=== PATIENT | male | born 1945 | race Caucasian/White ===

== ENCOUNTER 2016-06-10 23:01 | Emergency (ER) | payer OTHER ==
[~2016-06-10] VITALS: Ht 185.4 cm; Wt 102.8 kg
[2016-06-11] MEDS ORDERED: NORCO 5/3251 TABLET PO (01:26)
[2016-06-11 02:07] VITALS: BP 129/64
== END 2016-06-11 02:19 | disposition home or self-care (01) ==
LOC: EME → EDBD 23:01 → EME 23:01
PROC: 0SSBXZZ Reposition Left Hip Joint, External Approach (ICD-10-PCS; principal; 2016-06-11)
DX: M24.352 Pathological dislocation of left hip, not elsewhere classified (principal); Z96.643 Presence of artificial hip joint, bilateral; Z87.891 Personal history of nicotine dependence
CPT/HCPCS: 73501; 73502; 99281; 99284; J3010; J7040

== ENCOUNTER 2016-11-11 19:03 | Emergency (ER) | payer OTHER ==
[~2016-11-11] VITALS: Ht 182.9 cm; Wt 103.0 kg
[~2016-11-11 19:03] MED LIST: NORCO 5/3251 TABLET PO
[2016-11-11 19:39] LABS: HEMATOCRIT 38.7 % (38.0-50.0); MCH 33.7 PG (29.0-34.0); MCHC 33.3 G/DL (30.0-36.0); MEAN PLAT.VOLUME 9.5 uM^3 (9.0-12.4); PLATELET COUNT 203 K/uL (156-360); RBC DIS.WIDTH-SD 51.5 % (39-53); RED BLOOD COUNT 3.83 M/uL (4.00-5.50); WHITE BLOOD COUNT 6.4 K/uL (4.1-10.2)
[2016-11-11 19:51] LABS: CHLORIDE 109 mEq/L (99-109); POTASSIUM 4.2 mEq/L (3.7-5.4); SODIUM 142 mEq/L (136-147)
[2016-11-11 19:52] LABS: GLUCOSE 94 mg/dL (70-99)
[2016-11-11 19:54] LABS: ANION GAP 8 MEQ/L (2-14); INTER. NORMALIZED RATIO 1.1; PROTHROMBIN TIME 10.8 (9.2-11.2)
[2016-11-11 19:56] LABS: GFR ESTIMATE (CALCULATED) > 59 mL/min/
[2016-11-11 19:57] LABS: UREA NITROGEN (BUN) 11 mg/dL (9-23)
[2016-11-11 21:35] VITALS: BP 116/68
== END 2016-11-11 21:36 | disposition home or self-care (01) ==
LOC: EME 19:03
PROVIDERS: Emergency Medicine
PROC: 0SWBXJZ Revision of Synthetic Substitute in Left Hip Joint, External Approach (ICD-10-PCS; principal; 2016-11-11)
DX: T84.021A Dislocation of internal left hip prosthesis, initial encounter (principal); X50.0XXA Overexertion from strenuous movement or load, initial encounter; Z87.891 Personal history of nicotine dependence
CPT/HCPCS: 73501; 73502; 80048; 85027; 85610; 85730; 99281; 99285; J3010

== ENCOUNTER → 2017-04-28 | Outpatient (CLI) | payer OTHER | END | disposition home or self-care (01) | LOC: CDC 15:22 | DX: Z01.810 Encounter for preprocedural cardiovascular examination (principal); I44.0 Atrioventricular block, first degree; R94.31 Abnormal electrocardiogram [ECG] [EKG] | CPT/HCPCS: 93000 ==

== ENCOUNTER 2017-07-05 04:50 | Emergency (ER) | payer OTHER ==
[~2017-07-05] VITALS: Ht 185.4 cm; Wt 104.9 kg
[2017-07-05 05:23] LABS: HEMATOCRIT 40.3 % (38.0-50.0); HEMOGLOBIN 14.1 G/DL (12.5-16.6); MCH 34.6 PG (29.0-34.0); MCV 98.8 FL (86-99); PLATELET COUNT 215 K/uL (156-360); RBC DIS.WIDTH-CV 12.9 % (11.8-14.6); RBC DIS.WIDTH-SD 46.5 % (39-53); RED BLOOD COUNT 4.08 M/uL (4.00-5.50); WHITE BLOOD COUNT 7.5 K/uL (4.1-10.2)
[2017-07-05 05:42] LABS: CHLORIDE 106 MEQ/L (99-109); POTASSIUM 4.3 MEQ/L (3.7-5.4); SODIUM 138 MEQ/L (136-147)
[2017-07-05 05:48] LABS: CREATININE 1.1 MG/DL (0.6-1.3); GFR ESTIMATE (CALCULATED) > 59 mL/min/ (58.99-99999); GLUCOSE 112 mg/dL (70-99); UREA NITROGEN (BUN) 17 mg/dL (9-23)
[2017-07-05 06:19] LABS: APPEARANCE TURBID ((CLEAR)); BILIRUBIN SMALL; COLOR RED ((YELLOW)); GLUCOSE (STRIP) NEGATIVE; KETONES NEGATIVE
[2017-07-05 06:20] LABS: BLOOD LARGE; LEUKOCYTES TRACE; NITRITE NEGATIVE; PROTEIN (STRIP) TRACE; RED BLOOD CELLS TNTC /HPF (0-5); UCUL ADDED? YES; UROBILINOGEN 0.2 MG/DL (0.2-1.0)
[2017-07-05] MEDS ORDERED: FLOMAX0.4 MG PO (09:38)
[2017-07-05] MEDS ORDERED: ZOFRAN ODT4 MG PO (09:38)
[2017-07-05] MEDS ORDERED: PERCOCET 5/31 TABLET PO (09:38)
[2017-07-05 09:58] VITALS: BP 109/65
== END 2017-07-05 09:59 | disposition home or self-care (01) ==
LOC: EME 04:50
DX: N13.2 Hydronephrosis with renal and ureteral calculous obstruction (principal); K57.30 Diverticulosis of large intestine without perforation or abscess without bleeding; Z87.442 Personal history of urinary calculi; Z96.643 Presence of artificial hip joint, bilateral; Z87.891 Personal history of nicotine dependence
CPT/HCPCS: 74018; 74176; 80048; 81003; 85027; 87086; 99281; 99285; J1885; J2270; J2405; J7030

== ENCOUNTER 2017-10-15 20:29 | Emergency (ER) | payer OTHER ==
[~2017-10-15] VITALS: Ht 185.4 cm; Wt 104.3 kg
[~2017-10-15 20:29] MED LIST changes: +FLOMAX0.4 MG PO; +PERCOCET 5/31 TABLET PO; +ZOFRAN ODT4 MG PO
[2017-10-16 00:47] VITALS: BP 126/72
== END 2017-10-16 00:47 | disposition home or self-care (01) ==
LOC: EME 20:29
PROC: 0SSBXZZ Reposition Left Hip Joint, External Approach (ICD-10-PCS; principal; 2017-10-15)
DX: T84.021A Dislocation of internal left hip prosthesis, initial encounter (principal); Z96.643 Presence of artificial hip joint, bilateral; X58.XXXA Exposure to other specified factors, initial encounter; F32.9 Major depressive disorder, single episode, unspecified; F90.9 Attention-deficit hyperactivity disorder, unspecified type; Z88.5 Allergy status to narcotic agent; Z87.891 Personal history of nicotine dependence
CPT/HCPCS: 73501; 73502; 99281; 99285; J3010

== ENCOUNTER → 2017-11-02 | Outpatient (CLI) | payer OTHER ==
[~2017-11-02] MED LIST changes: +ARICEPT10 MG PO; +CLARITIN,ALAVAR10 MG PO; +CYANOCOBALAM1000 MCG PO; +GLUCOSAMINE CH1 EAC1 PO; +METHOTREXATE2.5 MG PO; +MULTIPLE VITAM1 EACH PO; +MYRBETRIQ25 MG PO; +OMEGA-3 FLAXS1000 MG PO; +POTASSIUM-9999 MG PO; +PRESERVISION T1 EACH PO; +PRILOSEC20 MG PO; +PROSCAR5 MG PO; +TYLENOL ARTHRI650 MG PO; +VITAMIN E400 UNIT PO; +WELLBUTRIN XL300 MG PO; +ZOCOR40 MG PO
== END | disposition home or self-care (01) ==
LOC: CDC 09:15
DX: Z01.810 Encounter for preprocedural cardiovascular examination (principal); T84.021D Dislocation of internal left hip prosthesis, subsequent encounter; R94.31 Abnormal electrocardiogram [ECG] [EKG]
CPT/HCPCS: 93000

== ENCOUNTER 2017-11-07 22:03 | Inpatient (IN) | payer OTHER ==
[~2017-11-07] VITALS: Ht 182.9 cm; Wt 101.7 kg
[~2017-11-07 22:03] MED LIST changes: +IRON325 M1 PO
[2017-11-08] MEDS ORDERED: OMEPRAZOLE20 MG PO (15:27)
[2017-11-08] MEDS ORDERED: DONEPEZIL HCL10 MG PO (15:27)
[2017-11-08] MEDS ORDERED: BUPROPION XL300 MG PO (15:28)
[2017-11-08] MEDS ORDERED: TAMSULOSIN HCL0.4 MG PO (15:31)
[2017-11-08] MEDS ORDERED: FINASTERIDE5 MG PO (15:32)
== END 2017-11-08 07:34 | disposition other institution (70) | DRG 561 ==
LOC: 2SOUTH → ENRESERV 22:03 → 2SOUTH 11-08 07:13
DX: T84.091A Other mechanical complication of internal left hip prosthesis, initial encounter (principal); Z53.09 Procedure and treatment not carried out because of other contraindication
CPT/HCPCS: J7050

== ENCOUNTER 2017-11-08 07:34 | Inpatient (IN) | payer OTHER ==
[~2017-11-08] VITALS: Ht 182.9 cm; Wt 97.2 kg
[2017-11-08 08:11] LABS: HEMATOCRIT 41.9 % (38.0-50.0); HEMOGLOBIN 14.3 G/DL (12.5-16.6); MCH 34.1 PG (29.0-34.0); MCHC 34.1 G/DL (30.0-36.0); PLATELET COUNT 236 K/uL (156-360); RBC DIS.WIDTH-CV 13.9 % (11.8-14.6); RBC DIS.WIDTH-SD 51.1 % (39-53); RED BLOOD COUNT 4.19 M/uL (4.00-5.50); WHITE BLOOD COUNT 11.8 K/uL (4.1-10.2)
[2017-11-08 08:21] LABS: ALBUMIN 4.3 g/dL (3.2-4.8); CHLORIDE 103 mEq/L (99-109); POTASSIUM 4.2 mEq/L (3.7-5.4); SODIUM 140 mEq/L (136-147)
[2017-11-08 08:23] LABS: GLUCOSE 164 mg/dL (70-99); TOTAL PROTEIN 7.4 g/dL (6.4-8.3)
[2017-11-08 08:25] LABS: TOTAL BILIRUBIN 0.7 mg/dL (0.0-1.0)
[2017-11-08 08:27] LABS: ALKALINE PHOSPHATASE 52 IU/L (3-129); CREATININE 1.1 mg/dL (0.6-1.3); GFR ESTIMATE (CALCULATED) > 59 mL/min/ (58.99-99999)
[2017-11-08 08:28] LABS: UREA NITROGEN (BUN) 23 mg/dL (9-23)
[2017-11-08 08:29] LABS: AST (GOT) 32 IU/L (2-34)
[2017-11-08 08:30] LABS: ALT (GPT) 36 IU/L (3-49); LIPASE 10 U/L (1.0-51.0)
[2017-11-08 08:33] LABS: TROP-I INTERPRETATION NEGATIVE; TROPONIN-I < 0.01 ng/mL (0.0-0.30)
[2017-11-08 09:22] LABS: APPEARANCE CLEAR ((CLEAR)); BILIRUBIN NEGATIVE; BLOOD NEGATIVE; COLOR YELLOW ((YELLOW)); GLUCOSE (STRIP) NEGATIVE; KETONES 5; LEUKOCYTES NEGATIVE; NITRITE NEGATIVE; PROTEIN (STRIP) 30; SPECIFIC GRAVITY 1.026 (1.000-1.030); UCUL ADDED? NO; UROBILINOGEN 0.2 MG/DL (0.2-1.0)
[2017-11-08] MEDS ORDERED: OMEPRAZOLE20 MG PO (15:27)
[2017-11-08] MEDS ORDERED: DONEPEZIL HCL10 MG PO (15:27)
[2017-11-08] MEDS ORDERED: BUPROPION XL300 MG PO (15:28)
[2017-11-08] MEDS ORDERED: TAMSULOSIN HCL0.4 MG PO (15:31)
[2017-11-08] MEDS ORDERED: FINASTERIDE5 MG PO (15:32)
[2017-11-08 22:13] VITALS: BP 142/66
[2017-11-09] VITALS: BP 132/78
[2017-11-09 04:20] VITALS: BP 147/69
[2017-11-09 06:03] LABS: BASOPHIL COUNT 0.1 K/uL (0-0.1); EOSINOPHIL (%) 1.8 % (0-5); EOSINOPHIL COUNT 0.2 K/uL (0-0.3); HEMATOCRIT 39.8 % (38.0-50.0); HEMOGLOBIN 13.3 G/DL (12.5-16.6); IMMATURE GRANULOCYTE (%) 0.2 % (0.0-0.7); LYMPHOCYTE (%) 28.2 % (15-42); LYMPHOCYTE COUNT 2.7 K/uL (1.0-2.8); MCH 33.2 PG (29.0-34.0); MCHC 33.4 G/DL (30.0-36.0); MCV 99.3 FL (86-99); MONOCYTE (%) 13.5 % (3-12); MONOCYTE COUNT 1.3 K/uL (0-0.8); NEUTROPHIL (%) 55.3 % (45-76); NEUTROPHIL COUNT 5.2 K/uL (1.8-6.4); PLATELET COUNT 236 K/uL (156-360); RBC DIS.WIDTH-CV 14.3 % (11.8-14.6); RBC DIS.WIDTH-SD 52.6 % (39-53); RED BLOOD COUNT 4.01 M/uL (4.00-5.50); WHITE BLOOD COUNT 9.4 K/uL (4.1-10.2)
[2017-11-09 06:29] LABS: ALBUMIN 3.9 G/DL (3.2-4.8); ALKALINE PHOSPHATASE 40 IU/L (3-129); ALT (GPT) 25 IU/L (3-49); AST (GOT) 23 IU/L (2-34); CHLORIDE 104 MEQ/L (99-109); CREATININE 0.8 MG/DL (0.6-1.3); GFR ESTIMATE (CALCULATED) > 59 mL/min/ (58.99-99999); HDL CHOLESTEROL 44 MG/DL (Desirable>=40); LDL CHOLESTEROL 82 mg/dL (Desirable<100); NON-HDL CHOLESTEROL 109 mg/dL (Desirable<160); SODIUM 140 MEQ/L (136-147); TOTAL BILIRUBIN 0.6 MG/DL (0.0-1.0); TOTAL CHOLESTEROL 153 mg/dL (Desirable<200); TOTAL PROTEIN 6.3 G/DL (6.4-8.3); TRIGLYCERIDES 137 MG/DL (Normal: <150); UREA NITROGEN (BUN) 15 mg/dL (9-23)
[2017-11-09 06:33] LABS: GLUCOSE 92 mg/dL (70-99)
[2017-11-09 08:00] VITALS: BP 140/69
[2017-11-09 11:43] VITALS: BP 116/67
[2017-11-09 12:33] LABS: HEMOGLOBIN A1c (GLYCOHEMOGLOB) 5.7 % (Below 5.7)
[2017-11-09 16:00] VITALS: BP 132/64
[2017-11-09 20:00] VITALS: BP 127/67
[2017-11-10] VITALS: BP 126/62
[2017-11-10 04:00] VITALS: BP 111/58
[2017-11-10 08:56] VITALS: BP 126/68
[2017-11-10 12:44] VITALS: BP 126/68
[2017-11-10] MEDS ORDERED: LOSARTAN POTASS25 MG PO (18:39)
[2017-11-10] MEDS ORDERED: ASPIR-LOW81 MG PO (18:39)
[2017-11-10 19:58] VITALS: BP 139/65
[2017-11-11] VITALS: BP 127/62
[2017-11-11 04:05] VITALS: BP 129/63
[2017-11-11 07:44] VITALS: BP 123/74
[2017-11-11 11:39] VITALS: BP 119/63
== END 2017-11-11 14:17 | DRG 65 ==
LOC: EME 07:34 → 5SOUTH 11:50 → EDOF 11:50 → CANRESERV 12:11 → ENRESERV 12:11 → CANRESERV 12:18 → ENRESERV 12:23 → 5SOUTH 21:01
PROVIDERS: Family Medicine; Nurse Practitioner Family
DX: I63.9 Cerebral infarction, unspecified (principal); R27.0 Ataxia, unspecified; R29.702 NIHSS score 2; R53.1 Weakness; E87.2 Acidosis; E78.5 Hyperlipidemia, unspecified; L40.9 Psoriasis, unspecified; I10 Essential (primary) hypertension; N40.0 Benign prostatic hyperplasia without lower urinary tract symptoms; R73.9 Hyperglycemia, unspecified; M25.552 Pain in left hip; K21.9 Gastro-esophageal reflux disease without esophagitis; F32.9 Major depressive disorder, single episode, unspecified; Z87.891 Personal history of nicotine dependence; Z96.643 Presence of artificial hip joint, bilateral; Z82.49 Family history of ischemic heart disease and other diseases of the circulatory system; Z82.0 Family history of epilepsy and other diseases of the nervous system
CPT/HCPCS: 70450; 70551; 71046; 74177; 80053; 80061; 81003; 82948; 83036; 83605; 83690; 84484; 85025; 85027; 93005; 93880; 97530 GO; 97530 GP; 99281; 99285; J1644; J7030

== ENCOUNTER 2017-11-10 15:22 | Inpatient (IN) | payer OTHER ==
[~2017-11-10] VITALS: Ht 182.9 cm; Wt 100.4 kg
[~2017-11-10 15:22] MED LIST changes: +BUPROPION XL300 MG PO; +DONEPEZIL HCL10 MG PO; +FINASTERIDE5 MG PO; +OMEPRAZOLE20 MG PO; +TAMSULOSIN HCL0.4 MG PO
[2017-11-10] MEDS ORDERED: ASPIR-LOW81 MG PO (18:39)
[2017-11-10] MEDS ORDERED: LOSARTAN POTASS25 MG PO (18:39)
[2017-11-11 14:51] VITALS: BP 118/57
[2017-11-12 00:49] VITALS: BP 103/57
[2017-11-12 04:40] VITALS: BP 104/56
[2017-11-12 05:52] LABS: HEMATOCRIT 38.5 % (38.0-50.0); HEMOGLOBIN 12.9 G/DL (12.5-16.6); MCHC 33.5 G/DL (30.0-36.0); MCV 98.5 FL (86-99); PLATELET COUNT 215 K/uL (156-360); RBC DIS.WIDTH-SD 50.4 % (39-53); RED BLOOD COUNT 3.91 M/uL (4.00-5.50); WHITE BLOOD COUNT 7.1 K/uL (4.1-10.2)
[2017-11-12 08:59] LABS: ALBUMIN 3.7 G/DL (3.2-4.8); ALKALINE PHOSPHATASE 41 IU/L (3-129); ALT (GPT) 27 IU/L (3-49); AST (GOT) 22 IU/L (2-34); CHLORIDE 103 MEQ/L (99-109); CREATININE 0.9 MG/DL (0.6-1.3); GFR ESTIMATE (CALCULATED) > 59 mL/min/ (58.99-99999); GLUCOSE 106 mg/dL (70-99); POTASSIUM 4.3 MEQ/L (3.7-5.4); SODIUM 138 MEQ/L (136-147); TOTAL BILIRUBIN 0.6 MG/DL (0.0-1.0); TOTAL PROTEIN 6.1 G/DL (6.4-8.3); UREA NITROGEN (BUN) 13 mg/dL (9-23)
[2017-11-12 15:05] VITALS: BP 112/57
[2017-11-13 02:54] VITALS: BP 123/64
[2017-11-13 05:52] VITALS: BP 123/64
[2017-11-13 15:21] VITALS: BP 114/57
[2017-11-14 05:09] VITALS: BP 131/63
[2017-11-14 15:17] VITALS: BP 118/57
[2017-11-15 05:11] VITALS: BP 138/63
[2017-11-15 16:00] VITALS: BP 116/62
[2017-11-16 05:55] VITALS: BP 129/62
[2017-11-16 15:34] VITALS: BP 109/55
[2017-11-17 05:00] VITALS: BP 122/65
[2017-11-17 15:31] VITALS: BP 123/62
[2017-11-18 05:09] VITALS: BP 131/60
[2017-11-18 07:29] LABS: ALBUMIN 3.6 G/DL (3.2-4.8); ALKALINE PHOSPHATASE 43 IU/L (3-129); ALT (GPT) 35 IU/L (3-49); AST (GOT) 20 IU/L (2-34); CHLORIDE 103 MEQ/L (99-109); GFR ESTIMATE (CALCULATED) > 59 mL/min/ (58.99-99999); GLUCOSE 101 mg/dL (70-99); POTASSIUM 4.6 MEQ/L (3.7-5.4); SODIUM 138 MEQ/L (136-147); TOTAL PROTEIN 5.9 G/DL (6.4-8.3); UREA NITROGEN (BUN) 13 mg/dL (9-23)
[2017-11-18 07:33] LABS: HEMATOCRIT 39.8 % (38.0-50.0); HEMOGLOBIN 13.2 G/DL (12.5-16.6); MCH 33.3 PG (29.0-34.0); MCHC 33.2 G/DL (30.0-36.0); MCV 100.5 FL (86-99); PLATELET COUNT 247 K/uL (156-360); RBC DIS.WIDTH-SD 51.9 % (39-53); RED BLOOD COUNT 3.96 M/uL (4.00-5.50); WHITE BLOOD COUNT 8.5 K/uL (4.1-10.2)
[2017-11-18 07:35] LABS: TOTAL BILIRUBIN 0.3 MG/DL (0.0-1.0)
[2017-11-18 15:11] VITALS: BP 114/70
[2017-11-19 05:46] VITALS: BP 124/60
[2017-11-19] MEDS ORDERED: ASPIR-LOW81 MG PO (13:16)
[2017-11-19] MEDS ORDERED: ATORVASTATIN CA40 MG PO (13:16)
== END 2017-11-19 13:55 | disposition home health service (06) | DRG 57 ==
LOC: 3WEST 15:22
PROVIDERS: Physical Medicine & Rehabilitation Pain Medicine
PROC: F07M0ZZ Range of Motion and Joint Mobility Treatment of Musculoskeletal System - Whole Body (ICD-10-PCS; principal; 2017-11-11)
DX: I69.398 Other sequelae of cerebral infarction (principal); R26.2 Difficulty in walking, not elsewhere classified; R53.1 Weakness; E78.5 Hyperlipidemia, unspecified; K57.30 Diverticulosis of large intestine without perforation or abscess without bleeding; K76.0 Fatty (change of) liver, not elsewhere classified; L40.9 Psoriasis, unspecified; M19.90 Unspecified osteoarthritis, unspecified site; N20.0 Calculus of kidney; N40.0 Benign prostatic hyperplasia without lower urinary tract symptoms; R32 Unspecified urinary incontinence; Z74.09 Other reduced mobility; E77.8 Other disorders of glycoprotein metabolism; Z60.2 Problems related to living alone; Z88.5 Allergy status to narcotic agent; Z87.891 Personal history of nicotine dependence; Z96.643 Presence of artificial hip joint, bilateral; Z96.653 Presence of artificial knee joint, bilateral; Z82.62 Family history of osteoporosis; Z82.49 Family history of ischemic heart disease and other diseases of the circulatory system; Z82.0 Family history of epilepsy and other diseases of the nervous system; Z84.89 Family history of other specified conditions
CPT/HCPCS: 80053; 85027; 97110 GO; 97530 GP; J1644; J8610